=== PATIENT | female | born 1955 | race Asian ===

== ENCOUNTER 2023-01-24 16:45 | Emergency (ER) | payer MEDICAID ==
[~2023-01-24] VITALS: Ht 134.6 cm; Wt 55.0 kg
[~2023-01-24 16:45] MED LIST: ATOR40TA71 PO; ESTR1TAB19 PO; FLUTICASONE NS; LORA-657 PO; NAPR-56 PO; OMEP20CA4 PO; ONDA8TAB9 PO
[2023-01-24 17:50] LABS: CLARITY,URINE SLIGHTLY CLOUDY (Clear); GLUCOSE, URINE NEGATIVE (Neg); KETONES,URINE NEGATIVE (Neg); LEUKOCYTE ESTERASE ,URINE NEGATIVE (Neg); NITRITES, URINE NEGATIVE (Neg); OCCULT BLOOD,URINE LARGE (Neg); PH,URINE 6.5 (4.8-8.0); PROTEIN,URINE NEGATIVE (Neg); UROBILINOGEN,URINE 0.2 E.U/dL (0.2-1.0)
[2023-01-24 17:56] LABS: UA COLLECTION TYPE CLN CATCH MIDSTREAM
[2023-01-24 18:00] LABS: COLOR,URINE PINK (Yellow)
[2023-01-24 18:01] LABS: BACTERIA,URINE NONE SEEN /HPF (Neg); RBC,URINE TNTC /HPF (0-2); WBC,URINE 0-4 /HPF (0-4)
[2023-01-24 18:02] LABS: SQUAMOUS EPITHELIAL CELL,UR NONE SEEN /LPF (FEW)
[2023-01-24 20:03] LABS: BASOPHILS % (AUTO) 0.4 % (0-1); EOSINOPHILS # (AUTO) 0.4 X10'3 (0-0.9); EOSINOPHILS % (AUTO) 4.5 % (0-6); HEMATOCRIT 40.2 % (35.0-45.0); HEMOGLOBIN 13.6 g/dl (12.0-16.0); LYMPHOCYTES # (AUTO) 2.5 X10'3 (1.1-4.8); MEAN CORPUSCULAR HEMOGLOBIN 30.3 PG (27.0-31.0); MEAN CORPUSCULAR HGB CONC 33.8 g/dL (33.0-36.5); MEAN CORPUSCULAR VOLUME 89.7 FL (78-98); MEAN PLATELET VOLUME 8.1 FL (7.4-10.4); MONOCYTES # (AUTO) 0.6 X10'3 (0-0.9); MONOCYTES % (AUTO) 6.9 % (2-12); NEUTROPHILS # (AUTO) 4.9 X10'3 (1.8-7.7); NEUTROPHILS % (AUTO) 58.2 % (42-75); PLATELET COUNT 252 X10'3 (140-440); RED BLOOD COUNT 4.48 X10'6 (4.20-5.60); RED CELL DISTRIBUTION WIDTH 13.5 % (11.5-14.5); WHITE BLOOD COUNT 8.5 X10'3 (4.5-11.0)
[2023-01-24 20:26] LABS: ALANINE AMINOTRANSFERASE 28 U/L (12-78); ALBUMIN 4.1 G/DL (3.4-5.0); ALBUMIN/GLOBULIN RATIO 1.1 (1.1-1.5); ALKALINE PHOSPHATASE 88 IU/L (46-116); ANION GAP 7 (8-16); ASPARTATE AMINO TRANSFERASE 25 U/L (10-37); BILIRUBIN,TOTAL 0.3 MG/DL (0.1-1.0); BLOOD UREA NITROGEN 15 MG/DL (7-18); BUN/CREATININE RATIO 21.4 (6.6-38.0); CALCIUM 9.1 MG/DL (8.5-10.1); CHLORIDE 104 MMOL/L (99-107); GLUCOSE 101 MG/DL (70-104); POTASSIUM 4.2 MMOL/L (3.5-5.1); SODIUM 139 MMOL/L (135-145); TOTAL CARBON DIOXIDE 27.7 MMOL/L (24-32); eGFR 84 ML/MIN
[2023-01-24] MEDS ORDERED: OXYC-150 PO (21:56)
[2023-01-24] MEDS ORDERED: ONDA4TAB12 PO (21:56)
[2023-01-24] MEDS ORDERED: FLO0.4C PO (21:56)
[2023-01-24] MEDS: tamsulosin 0.4mg capsule PO STA (22:04)
[2023-01-24] MEDS: oxyCODONE/APAP 10/325mg tablet PO ONE (22:04)
[2023-01-24 22:11] VITALS: BP 122/88
== END 2023-01-24 22:15 | disposition home or self-care (01) ==
LOC: ER 16:45
DX: N20.0 Calculus of kidney (principal); E78.00 Pure hypercholesterolemia, unspecified; G89.29 Other chronic pain; Z98.890 Other specified postprocedural states
CPT/HCPCS: 36415; 74176; 80053; 81001; 85025; 99285

== ENCOUNTER 2025-04-14 19:45 | Emergency (ER) | payer MEDICARE, MEDICAID ==
[~2025-04-14] VITALS: Ht 162.6 cm; Wt 51.6 kg
[~2025-04-14 19:45] MED LIST changes: +ONDA-243 PO; +OXYC-150 PO
[2025-04-14 19:52] VITALS: TEMP 98.6
[2025-04-14 20:16] LABS: BASOPHILS % (AUTO) 0.6 % (0-1); EOSINOPHILS # (AUTO) 0.2 X10'3 (0-0.9); EOSINOPHILS % (AUTO) 3.8 % (0-6); HEMATOCRIT 41.3 % (35.0-45.0); LYMPHOCYTES # (AUTO) 1.9 X10'3 (1.1-4.8); LYMPHOCYTES % (AUTO) 32.8 % (21-51); MEAN CORPUSCULAR HEMOGLOBIN 29.7 PG (27.0-31.0); MEAN CORPUSCULAR HGB CONC 33.8 g/dL (33.0-36.5); MEAN PLATELET VOLUME 8.5 FL (7.4-10.4); MONOCYTES # (AUTO) 0.4 X10'3 (0-0.9); MONOCYTES % (AUTO) 7.7 % (2-12); NEUTROPHILS # (AUTO) 3.2 X10'3 (1.8-7.7); NEUTROPHILS % (AUTO) 55.1 % (42-75); PLATELET COUNT 244 X10'3 (140-440); RED CELL DISTRIBUTION WIDTH 13.6 % (11.5-14.5); WHITE BLOOD COUNT 5.7 X10'3 (4.5-11.0)
[2025-04-14 20:29] LABS: ALANINE AMINOTRANSFERASE 26 U/L (12-78); ALBUMIN 3.7 G/DL (3.4-5.0); ALBUMIN/GLOBULIN RATIO 0.9 (1.1-1.5); ALKALINE PHOSPHATASE 89 IU/L (46-116); ANION GAP 9 (8-16); ASPARTATE AMINO TRANSFERASE 18 U/L (10-37); BILIRUBIN,TOTAL 0.4 MG/DL (0.1-1.0); BLOOD UREA NITROGEN 15 MG/DL (7-18); BUN/CREATININE RATIO 21.1 (10.0-20.0); CALCIUM 9.1 MG/DL (8.5-10.1); CHLORIDE 106 MMOL/L (99-107); CREATININE 0.71 MG/DL (0.40-0.90); GLUCOSE 114 MG/DL (70-104); LIPASE 40 U/L (16-77); POTASSIUM 3.6 MMOL/L (3.5-5.1); SODIUM 142 MMOL/L (135-145); TOTAL CARBON DIOXIDE 27.2 MMOL/L (24-32); TOTAL PROTEIN 7.6 G/DL (6.4-8.2); eCRCL 62 ML/MIN; eGFR 82 ML/MIN
[2025-04-14 21:01] LABS: BILIRUBIN,URINE NEGATIVE (Neg); CLARITY,URINE CLEAR (Clear); COLOR,URINE YELLOW (Yellow); GLUCOSE, URINE NEGATIVE (Neg); KETONES,URINE NEGATIVE (Neg); LEUKOCYTE ESTERASE ,URINE NEGATIVE (Neg); NITRITES, URINE NEGATIVE (Neg); OCCULT BLOOD,URINE SMALL (Neg); PROTEIN,URINE NEGATIVE (Neg); UROBILINOGEN,URINE 0.2 E.U/dL (0.2-1.0)
[2025-04-14 21:02] LABS: UA COLLECTION TYPE NON-SPECIFIED
[2025-04-14 21:07] LABS: BACTERIA,URINE NONE SEEN /HPF (Neg); WBC,URINE 0-4 /HPF (0-4)
[2025-04-14 21:08] LABS: SQUAMOUS EPITHELIAL CELL,UR NONE SEEN /LPF (FEW)
--- NOTE | 2025-04-14 22:54 | Physician Documentation ---
History of Present Illness ~ Chief Complaint: Flank Pain Stated Complaint: KIDNEY PAIN Time Seen by MD: 22:53 Primary Medical Doctor: NUNU Mode of Arrival: POV HPI Patient presents to the emergency room for evaluation of left flank pain over the last few days. She does have history of kidney stones but states this feels different. No dysuria Medication Reconciliation Allergies: Coded Allergies: No Known Allergies (Unverified , 04/14/25) Scheduled Atorvastatin Calcium (Atorvastatin Calcium), 1 TABLET PO DAILY, (Reported) Estradiol (Estradiol), 1 TABLET PO DAILY, (Reported) Loratadine (Loratadine), 10 MG PO DAILY, (Reported) Naproxen (Naproxen), 1 TAB PO DAILY, (Reported) Omeprazole (Prilosec), 1 CAP PO DAILY, (Reported) Ondansetron 8mg ODT (Ondansetron Odt), 1 TAB PO Q6H [Fluticasone ], 50 MCG NS DAILY, (Reported) Scheduled PRN Hydrocodone Bit/Acetaminophen 5/325 MG (Cabazon 5/325 MG), 1 TAB PO Q4-6 hours PRN for pain ONDANSETRON ODT 4mg tablet (Ondansetron Odt), 1 TABLET PO Q6H PRN for nausea/vomiting Ondansetron (Zofran Odt), 8 MG PO TID PRN PRN for nausea/vomiting Oxycodone HCl/Acetaminophen (Percocet 10-325 mg Tablet), 1 TAB PO TID PRN PRN for pain Past Medical History Past Medical History: *CARDIOVASCULAR*, High Cholesterol, Kidney Stones, Chronic Pain Past Surgical History: appendectomy Alcohol Use: None Drug Use: none Lives with: Spouse Lives In: Home Occupation: retired Review of Systems ROS All review of systems negative except as per HPI Physical Exam Vital Signs: Temperature: 98.6, Source: Temporal, Heart Rate: 82, Respiratory Rate: 16, BP: 123/79, Pulse Oximetry: 97, Weight: 51.650 Oxygen Flow Rate: 0 Physical Exam General: Patient is awake, alert, oriented x4 in no acute distress Head: Normocephalic and atraumatic. Eyes: Conjunctival normal. EOMI. PERRL. ENT: Mucous membranes moist. Neck: Supple, trachea is midline. Chest: Clear to auscultation bilaterally without rales, rhonchi, or wheezes. There is no accessory muscle use or retractions. Cardiac: RRR without murmurs, gallops, or rubs. Back: Left CVA tenderness Progress Results/Orders Results/Orders Orders - JUN GRACIA MD Ct Abdomen Pelvis (04/14/25 22:55) Completed Orders - JUN GRACIA MD Cbc/Diff (04/14/25 19:55) BMP (04/14/25 19:55) Lipase (04/14/25 19:55) CMP (04/14/25 19:55) Procalcitonin (04/14/25 19:55) Ua W/Microscopic, Cult If Ind (04/14/25 20:30) Ct Abdomen Pelvis (04/14/25 22:55) Ketorolac Trometh 15mg/Ml Vial (Toradol (04/14/25 23:00) Acetaminophen 325mg Tablet (Tylenol Tabl (04/14/25 23:00) Vital Signs 04/14/25 04/14/25 04/14/25 04/14/25 19:52 20:45 20:45 22:27 Temp 98.6 Pulse 100 97 82 Resp 15 16 16 B/P (MAP) 102/45 125/80 (95) 123/79 (94) Pulse Ox 99 98 97 O2 Flow Rate 0 0 Laboratory Tests Test 04/14/25 20:05 04/14/25 20:30 White Blood Count 5.7 Red Blood Count 4.70 Hemoglobin 14.0 Hematocrit 41.3 Mean Corpuscular Volume 88.0 Mean Corpuscular Hemoglobin 29.7 Mean Corpuscular Hemoglobin Concent 33.8 Red Cell Distribution Width 13.6 Platelet Count 244 Mean Platelet Volume 8.5 Neutrophils (%) (Auto) 55.1 Lymphocytes (%) (Auto) 32.8 Monocytes (%) (Auto) 7.7 Eosinophils (%) (Auto) 3.8 Basophils (%) (Auto) 0.6 Neutrophils # (Auto) 3.2 Lymphocytes # (Auto) 1.9 Monocytes # (Auto) 0.4 Eosinophils # (Auto) 0.2 Basophils # (Auto) 0.0 CBC Comment Sodium Level 142 Potassium Level 3.6 Chloride Level 106 Carbon Dioxide Level 27.2 Anion Gap 9 Blood Urea Nitrogen 15 Creatinine 0.71 Estimated GFR/1.73 m2 82 BUN/Creatinine Ratio 21.1 H Glucose Level 114 H Calcium Level 9.1 Total Bilirubin 0.4 Aspartate Amino Transf (AST/SGOT) 18 Alanine Aminotransferase (ALT/SGPT) 26 Alkaline Phosphatase 89 Total Protein 7.6 Albumin 3.7 Globulin 3.9 Albumin/Globulin Ratio 0.9 L Lipase 40 Procalcitonin < 0.05 Chemistry Comments Urine Specimen Description Non-specified Urine Color Yellow Urine Clarity Clear Urine pH 6.0 Urine Specific Novi <=1.005 Urine Protein Negative Urine Glucose (UA) Negative Urine Ketones Negative Urine Occult Blood Small Urine Nitrite Negative Urine Bilirubin Negative Urine Urobilinogen 0.2 Urine Leukocyte Esterase Negative Urine RBC 3-10 Urine WBC 0-4 Urine Squamous Epithelial Cells None seen Urine Bacteria None seen Urine Culture Indicated Not ind Volume Urine Centrifuged 10 ml Urine Comment Medical Decision Making Findings Patient presents to the emergency room for evaluation of left flank pain over the last few days. She does have history of kidney stones but states this feels different. Differentials include but are not limited to kidney stone, aortic pathology, musculoskeletal pain therefore emergent labs and imaging indicated. No evidence of kidney injury, no urinary tract infection and patient's pain is controlled. CT scan positive for kidney stone and we will treat as such. Departure Disposition: HOME / SELF CARE / HOMELESS Impression: Primary Impression: Kidney stone Condition: Stable Discharge Instructions: Kidney Stones Referrals: NO PRIMARY CARE PROVIDER (PCP) Prescriptions Ondansetron 8mg ODT (Ondansetron Odt) 8 Mg Tab.rapdis 1 TAB PO Q6H for nausea/vomiting for 3 Days, #12 TAB 0 Refills Prov: JUN GRACIA MD 04/14/25 Hydrocodone Bit/Acetaminophen 5/325 MG (Cabazon 5/325 MG) 5 Mg/325 Mg Tablet 1 TAB PO Q4-6 hours PRN for pain, #15 TAB Prov: JUN GRACIA MD 04/14/25 Education Educated: Patient Educated regarding: need for follow up Signature Scribe Signature: No scribe Attestation: The note accurately reflects work and decisions made by me.Jun Gracia MD 04/14/25 23:36 JUN GRACIA MD April 14, 2025 22:54
--- NOTE | 2025-04-14 23:25 | RADIOLOGY REPORT ---
Exam: CT CT ABDOMEN PELVIS History: left flank pain Comparison Study: CT ABDOMEN PELVIS on DOS: 01/24/23 Technique: Multidetector spiral CT of the abdomen was performed from lung bases to pubic symphysis. Imaging was performed without IV contrast. Axial, coronal and sagittal multiplanar reformats were ob tained from the axial data set by the technologist. Radiation Dose : 1. Abdomen/Pelvis: CTDIvol 8.9 mGy, DLP 436 mGy*cm. Findings: Evaluation of solid organs is limited due to lack of intravenous contrast use. Lung Bases: No acute or significant lung base finding. Normal heart size. No pleural or pericardial effusion. Liver: The liver is normal in size. No focal lesions. Gallbladder and Biliary Tree: Unremarkable Spleen: Unremarkable Pancreas: The pancreas is grossly normal in appearance. Adrenal Glands: Unremarkable Kidneys: 4 mm obstructing stone in the left UVJ is causing mild left-sided hydroureteronephrosis. Mul tiple nonobstructing calculi are seen in the right kidney. No right-sided hydronephrosis Bladder: Grossly unremarkable for degree of distention. Bowel: The stomach is grossly normal in appearance. Small bowel and colon are normal in caliber and d istribution. The appendix is not visualized; however, no secondary findings of acute appendicitis id entified. Ascites: Absent Lymphadenopathy: No mesenteric, retroperitoneal or periportal lymphadenopathy. Abdominal Wall and Mesentery: Unremarkable. Vasculature: The visualized abdominal aorta is normal in size and caliber. Evaluation of abdominal a nd pelvic vessels is limited due to lack of intravenous contrast. Pelvic Organs: Unremarkable Musculoskeletal: Grade 1 anterolisthesis of L4 on L5. IMPRESSION: 1. 4 mm obstructing stone in the left UVJ is causing mild left-sided hydroureteronephrosis. Radiation optimization: All CT scans at this facility use at least one of these dose optimization chela hniques: automated exposure control mA and/or kV adjustment per patient size (includes targeted exam s where dose is matched to clinical indication) or iterative reconstruction.
[2025-04-14] MEDS ORDERED: ONDA-245 PO (23:33)
[2025-04-14] MEDS ORDERED: HYDR-3965 PO (23:33)
[2025-04-14] MEDS: acetaminophen 325mg tablet PO ONE (23:48)
[2025-04-14] MEDS: ketorolac trometh 15mg/ml vial 15 MG/ML ML IM ONE (23:49)
[2025-04-14 23:57] VITALS: BP 153/80; PULSE 89; RESP 17; O2SAT 97
== END 2025-04-15 00:07 | disposition home or self-care (01) ==
LOC: ER 19:46
DX: N20.0 Calculus of kidney (principal); E78.00 Pure hypercholesterolemia, unspecified; Z90.49 Acquired absence of other specified parts of digestive tract
CPT/HCPCS: 36415; 74176; 80053; 81001; 83690; 84145; 85025; 96372; 99285; J1885